=== PATIENT | male | born 1955 | race African-American/Black ===

== ENCOUNTER 2024-09-06 09:44 | Outpatient (OUT) | payer MEDICARE, SELFPAY ==
--- NOTE | 2024-09-06 09:58 | US_ITS ---
[address] [address] Patient Name: GENEVIEVE JOHNSON MRN: [id number] date: 1955 Sex: M Assigned Patient Location: US Current Patient Location: US Accession/Order Number: [id number] Exam Date: 09/06/2024 09:59 Report Date: 09/06/2024 11:17 At the request of: GIORGIO WHITE Procedure: US abdominal aortic aneurysm EXAMINATION: US abdominal aortic aneurysm HISTORY: Screening, Ex Cigarette Smoker COMPARISON: No relevant comparison available. TECHNIQUE: Ultrasound examination of the retroperitoneal area was performed, with a focused evaluation of the abdominal aorta. FINDINGS: Proximal aorta: 2.1 x 3.0 cm Mid aorta: 1.9 x 2.0 cm Distal aorta: 1.9 x 1.9 cm Right common iliac artery: 1.2 x 1.0 cm Left common iliac artery: 1.1 x 1.2 cm US/US abdominal aortic aneurysm IMPRESSION: No abdominal aortic aneurysm observed. Electronically authenticated by: DENITA SANTANA Date: 09/06/2024 11:17
== END 2024-09-06 09:45 | disposition home or self-care (01) ==
LOC: US 09:44
PROVIDERS: PCP Family Medicine; Visit Provider Family Medicine
DX: Z87.891 Personal history of nicotine dependence (principal)
CPT/HCPCS: 76775

== ENCOUNTER 2024-10-01 13:20 | Outpatient (OUT) | payer MEDICARE, SELFPAY ==
--- OUTSIDE RECORDS SUMMARY | 2024-10-01 13:27 | XMS_ITS | CCD ---
Author Organization [facility] Care Team Providers Care Automotive Brake Technician Name Role Phone Fantasma Lemon DO Primary Care Provider [phone] FANTASMA LEMON Attending Unavailable FANTASMA LEMON Referring Unavailable FANTASMA LEMON Primary Care Unavailable Allergies Allergy Classification Reported Allergen(s) Allergy Type Date of Onset Reaction(s) Facility (9 sources) Codeine; Translations: [CODEINE] Drug Allergy 07-27-2022 Itching [facility] Medications Current Medications Medication Drug Class(es) Dates Sig (Normalized) Sig (Original) amLODIPine 10 mg oral tablet (10 sources) Dihydropyridine Calcium Channel Miguel Start: 08-27-2024 take 1 tablet by mouth in the morning amLODIPine (NORVASC) 10 mg tablet Indications: Essential (primary) hypertension TAKE 1 TABLET (10 MG TOTAL) BY MOUTH IN THE MORNING 90 tablet 08/27/2024 Active Start: 05-27-2024 End: 08-27-2024 take 1 tablet by mouth in the morning amLODIPine (NORVASC) 10 mg tablet Indications: Essential (primary) hypertension TAKE 1 TABLET (10 MG TOTAL) BY MOUTH IN THE MORNING 90 tablet 05/27/2024 08/27/2024 Discontinued Start: 04-22-2023 End: 11-27-2023 take 1 tablet by mouth in the morning amLODIPine (NORVASC) 10 mg tablet Indications: Essential (primary) hypertension Take 1 tablet (10 mg total) by mouth in the morning. 30 tablet 5 11/27/2023 Active aspirin 81 mg delayed release oral tablet (8 sources) Platelet Aggregation Inhibitor, Nonsteroidal Anti-inflammatory Drug aspirin 81 mg asp irin Active atorvastatin 10 mg oral tablet (13 sources) HMG-CoA Reductase Inhibitor Start: take 1 tablet by mouth once daily atorvastatin (LIPITOR) 10 mg tablet Indications: Pure hyperglyceridemia TAKE 1 TABLET BY MOUTH EVERY DAY 30 tablet 09/16/2024 Active Start: 05-29-2024 End: 09-16-2024 take 1 tablet by mouth once daily atorvastatin (LIPITOR) 10 mg tablet Indications: Pure hyperglyceridemia TAKE 1 TABLET BY MOUTH EVERY DAY 30 tablet 08/20/2024 09/16/2024 Discontinued Start: 09-28-2023 End: 11-30-2023 take 1 tablet by mouth once daily atorvastatin (LIPITOR) 10 mg tablet Indications: Pure hyperglyceridemia take 1 tablet by mouth every day 90 tablet 0 11/30/2023 Active levothyroxine sodium 0.05 mg oral tablet (9 sources) l-Thyroxine Start: 08-27-2024 take 1 tablet by mouth in the morning levothyroxine (SYNTHROID, LEVOTHROID) 50 MCG tablet Indications: Hypothyroidism TAKE 1 TABLET (50 MCG TOTAL) BY MOUTH IN THE MORNING 90 tablet 08/27/2024 Active Start: 05-27-2024 End: 08-27-2024 take 1 tablet by mouth in the morning levothyroxine (SYNTHROID, LEVOTHROID) 50 MCG tablet Indications: Hypothyroidism TAKE 1 TABLET (50 MCG TOTAL) BY MOUTH IN THE MORNING 90 tablet 05/27/2024 08/27/2024 Discontinued Start: 07-05-2023 take 1 tablet by john th in the morning levothyroxine (SYNTHROID, LEVOTHROID) 50 MCG tablet Indications: Hypothyroidism Take 1 tablet (50 mcg total) by mouth in the morning. 90 tablet 1 07/05/2023 Active sildenafil 100 mg oral tablet (4 sources) Phosphodiesterase 5 Inhibitor Start: 08-08-2024 take 1 tablet by mouth once daily as needed sildenafiL (VIAGRA) 100 mg tablet Take 1 tablet (100 mg total) by mouth daily as needed for erectile dysfunction. 10 tablet 5 08/08/2024 Active Completed/Discontinued Medications Medication Drug Class(es) Dates Sig (Normalized) Sig (Original) cimetidine 300 mg oral tablet (5 sources) Histamine-2 Receptor Antagonist Start: 07-05-2023 End: 08-08-2024 take 1 tablet by mouth three times daily cimetidine (TAGAMET) 300 mg tablet Indications: Urticaria TAKE 1 TABLET BY MOUTH THREE TIMES A DAY 270 tablet 1 07/05/2023 08/08/2024 Discontinued (Therapy completed) Problems Active Problems Problem Classification Problem Date Documented Da te Episodic/Chronic Chronic kidney disease (9 sources) Chronic kidney disease stage 3; Translations: [Stage 3 chronic kidney disease] Onset: 07-17-2018 Resolved: 08-08-2024 07-27-2022 Chronic Disorders of lipid metabolism (16 sources) Hypertriglyceridemi a; Translations: [Pure hyperglyceridemia] Onset: 05-19-2016 07-27-2022 Chronic Essential hypertension (11 sources) Essential hypertension; Translations: [Essential (primary) hypertension] Onset: 08-08-2024 11-27-2023 Chronic Hypertension with complications and secondary hypertension (10 sources) Hypertensive renal disease; Translations: [Hypertensive chronic kidney disease with stage 1 through stage 4 chronic kidney disease, or unspecified chronic kidney disease] Onset: 07-27-2022 Resolved: 08-08-2024 07-27-2022 Chronic Immunizations and screening for infectious disease (2 sources) Needs influenza immunization; Translations: [Encounter for immunization] Onset: 08-08-2024 08-08-2024 Episodic Nutritional deficiencies (10 sources) Vitamin D deficiency; Translations: [Vitamin D deficiency, unspecified] Onset: 08-14-2019 07-27-2022 Chronic Other male genital disorders (9 sources) Other male erectile dysfunction; Translations: [Impotence of organic origin] Onset: 05-19-2016 07-27-2022 Chronic Other male genital disorders (1 source) Male erectile dysfunction, unspecified; Translations: [Male erectile dysfunction, unspecified] Onset: 08-08-2024 Chronic Other nervous system disorders (8 sources) Carpal tunnel syndrome; Translations: [Carpal tunnel syndrome, unspecified upper limb] Onset: 11-14-2016 07-27-2022 Chronic Screening and history of mental health and substance abuse codes (2 sources) Ex-cigarette smoker; Translations: [Personal history of nicotine dependence] Onset: 08-08-2024 08-08-2024 Episodic Thyroid disorders (19 sources) Acquired hypothyroidism; Translations: [Hypothyroidism, unspecified] Onset: 11-30-2016 06-21-2022 Chronic Past or Other Problems Problem Classification Problem Date Documented Da te Episodic/Chronic Mood disorders (8 sources) Mood disorders Onset: 06-26-2023 Resolved: 08-08-2024 06-26-2023 Other screening for suspected conditions (not mental disorders or infectious disease) (8 sources) Patient encounter status; Translations: [Encounter for screening for malignant neoplasm of prostate] Onset: 06-21-2022 06-21-2022 Episodic Vital Signs Date Time Vital Sign Value Performing Clinician Maya norton 08-08-2024 13:12-0500 Body mass index (BMI) [Ratio] 25.44 kg/m2 [employer] Work Phone: [employer] 08-08-2024 13:12-0500 Body temperature 98.6 [degF] [employer] Work Phone: [employer] 08-08-2024 13:12-0500 Body weight 94.8 kg [employer] Work Phone: [employer] 08-08-2024 13:12-0500 Diastolic blood pressure 60 mm[Hg] [employer] Work Phone: [employer] 08-08-2024 13:12-0500 Heart rate 93 /min [employer] Work Phone: [employer] 08-08-2024 13:12-0500 SaO2% (BldA) [Mass fraction] 98 % [employer] DO Work Phone: [employer] 08-08-2024 13:12-0500 Systolic blood pressure 142 mm[Hg] [employer] Work Phone: [facility] Encounters Encounter Date Encounter Type Care Provider Facility Start: 09-15-2024 End: 09-16-2024 Refill Fantasmasarah Rojasng DO Work Phone: [facility] Comment on above: Pure hyperglyceridem ia Start: 08-27-2024 End: 08-27-2024 Refill Fantasma Nataliya Rojasng DO Work Phone: [facility] Comment on above: Hypothyroidism; Essential (primary) hypertension Start: 08-20-2024 End: 08-20-2024 Refill Fantasma Lemon DO Work Phone: [facility] Comment on above: Pure hyperglyceridem ia Start: 08-08-2024 End: 08-08-2024 ambulatory FANTASMA LEMON [facility] Start: 08-08-2024 End: 08-08-2024 Office outpatient visit 25 minutes Fantasma Lemon DO Work Phone: [facility] Comment on above: Stage 2 chronic kidn ey disease due to benign hypertension (Primary Dx); Acquired hypothyroidism; Vitamin D deficiency; Hypertriglyceridemia; Need for immunization against influenza; Ex-cigarette smoker; Erectile dysfunction, unspecified erectile dysfunction type Start: 07-25-2024 End: 07-25-2024 Refill Fantasma Lemon DO [facility] Comment on above: Pure hyperglyceridem ia Start: 06-28-2024 End: 06-28-2024 Refill Fantasma Lemon DO Work Phone: [facility] Comment on above: Pure hyperglyceridem ia Start: 11-30-2023 Refill Fantasma cui DO [facility] Comment on above: Pure hyperglyceridem ia Start: 11-27-2023 Refill Mechelle Nena APRON CLEANER [facility] Comment on above: Essential (primary) hypertension Procedures Date Procedure Procedure Detail Performing Clinician Start: 08-08-2024 Adult depression screening assessment Fantasma Lemon DO Work Phone: Start: 06-26-2023 Adult depression screening assessment Mechelle Nena APRON CLEANER Plan of Treatment Date Care Activity Detail Author Start: 08-09-2029 DTaP,Tdap and Td Vaccines (2 - Td or Tdap) DTaP,Tdap and Td Vaccines (2 - Td or Tdap) [facility] Start: 08-08-2025 Adult BMI Screening Adult BMI Screening [facility] Start: 08-08-2025 Depression Screening Depression Screening [facility] Start: 08-08-2025 Fall Risk Screening Fall Risk Screening [facility] Start: 08-08-2025 Tobacco Screening Tobacco Screening [facility] Start: 09-18-2024 Screening for malignant neoplasm of colon Colon Cancer Screening 3 Year Cologuard [facility] Comment on above: Postponed from 2002 (Patient Refus ed) Start: 08-08-2024 End: 08-08-2025 US Abdominal Aorta for screening Ultrasound abdominal aorta for AAA screening Imaging Routine Ex-cigarette smoker Expected: 08/08/2024, Expires: 08/08/2025 [facility] Comment on above: Expected: 08/08/2024, Expires: Start: 08-08-2024 End: 08-08-2024 Patient encounter procedure 08/08/2024 1:00 PM EST Office Visit [facility] [address] [place] [address] Fantasma Lemon, DO [address], [place] [address] [facility] Start: 06-26-2024 Adult BMI Screening Adult BMI Screening [facility] Start: 06-26-2024 Depression Screening Depression Screening [facility] Start: 06-26-2024 Fall Risk Screening Fall Risk Screening [facility] Start: 06-26-2024 Tobacco Screening Tobacco Screening [facility] Start: 05-19-2024 COVID-19 Vaccine ( season) COVID-19 Vaccine () [facility] Start: 05-19-2024 COVID-19 Vaccine () COVID-19 Vaccine () [facility] Start: 05-19-2024 Influenza vaccination Influenza Vaccine [facility] Start: 05-19-2023 COVID-19 Vaccine () COVID-19 Vaccine () [facility] Start: 05-19-2023 Influenza vaccination Influenza Vaccine [facility] Start: 2022 Abdominal aortic aneurysm screening Abdominal Aortic Aneurysm (AAA) Screen [facility] Start: 12-11-2007 Administration of varicella zoster vaccine Zoster (Shingles) Vaccine (1 of 2) [facility] Start: 2002 Screening for malignant neoplasm of colon Colon Cancer Screening 3 Year Cologuard [facility] Start: 12-11-1975 Adult BMI Follow Up Plan Adult BMI Follow Up Plan [facility] Start: 1955 Medicare Annual Wellness Visit Medicare [facility] End: 08-08-2025 Comprehensive metabolic 2000 panel - Serum or Plasma Comprehensive metabolic panel Lab Routine Stage 2 chronic kidney disease due to benign hypertension 1 Occurrences starting 08/08/2024 until 08/08/2025 [facility] Comment on above: 1 Occurrences starting 08/08/2024 until 08/08/2025 End: 08-08-2025 Lipid panel Lipid panel Lab Routine Hypertriglyceridemia 1 Occurrences starting 08/08/2024 until 08/08/2025 [facility] Comment on above: 1 Occurrences starting 08/08/2024 until 08/08/2025 End: 08-08-2025 Thyroid profile includes TSH FT4 Thyroid profile includes TSH FT4 Lab Routine Acquired hypothyroidism 1 Occurrences starting 08/08/2024 until 08/08/2025 [employer] Work Phone: Comment on above: 1 Occurrences starting 08/08/2024 until 08/08/2025 Immunizations Immunization Date Immunization Notes Care Provider Salome devine 08-08-2024 Seasonal trivalent influenza vaccine, adjuvanted, preservative free Fantasma Lemon DO Work Phone: [facility] 08-08-2024 Immunization, In Clinic,; Translations: [Drug or medicament (substance)] Fantasma Lemon DO [facility] Phone[facility] 08-09-2019 tetanus toxoid, redu hebert diphtheria toxoid, and acellular pertussis vaccine, adsorbed Mechelle Nena APRON CLEANER [facility] Work Phone: Payers Date Payer Category Payer Medicare HMO [employer] [id number] 2024 Medicare [id number] 2022 Unknown [employer] OUT OF STATE PPO/TRUST [id number] 2022-Present [phone] [id number] [place] [address] [id number] 1955 Unknown [id number] Social History Date Type Detail Facility Start: 03-10-2023 [facility] History of tobacco use [facility] History of tobacco use Cigarette Smoker P [facility] Start: 07-27-2022 End: 03-10-2023 Cigarettes smoked current (pack per day) - Reported 0.4 [facility] Start: 03-10-2023 Tobacco use and exposure Smoke less tobacco non-user [facility] Start: 06-26-2023 End: 08-08-2024 Alcohol intake Current drinker of alcohol (finding) [facility] Start: 07-27-2022 End: 08-08-2024 Social connection and isolation panel [facility] Do you belong to any clubs or organizations such as sikhism groups, unions, fraternal or athletic groups, or school groups? Yes [facility] Are you now , , , , never or living with a partner? [facility] How often to you hav e a drink containing alcohol? 2-3 time sa week [facility] How many standard dr inks containing alcohol do you have on a typical day? 1 or 2 [facility] How often do you hav e 6 or more drinks on 1 occasion? Never [facility] How hard is it for y ou to pay for the very basics like food, housing, medical care, and heating Not hard at all [facility] Do you feel stress - tense, restless, nervous, or anxious, or unable to sleep at night because your mind is troubled all the time - these days [OSQ] Not at all [facility] Start: 1955 Sex Assigned At Not on file P [facility] Start: 04-23-2015 Sex Male (finding) [facility] Has the [employer], [facility], or water [employer] threatened to shut off services in your home in past 12Mo No [facility] Clinical Notes 08-08-2024 to 09-15-2024 Telephone Encounter - Fantasma Lemon DO - 09/15/2024 7:47 AM ESTTelephone Encounter - Fantasma Lemon DO - 09/15/2024 7:47 AM Sayra Lemon DO - 08/08/2024 1:00 PM EST Note Date & Type Note Facility 09-15-2024 Miscellaneous Notes Formattin g of this note might be different from the original. He refused to get his labs done here at last visit. He needs to get them done somewhere. Where would he like them done at? It probably will not be free because he is Medicare but he needs them done regardless or he will not be able to continue on the medications documented in this encounter [facility] 09-15-2024 Telephone encount er Note He refused to get his labs done here at last visit. He needs to get them done somewhere. Where would he like them done at? It probably will not be free because he is Medicare but he needs them done regardless or he will not be able to continue on the medications [employer] 08-27-2024 Miscellaneous Notes Formattin g of this note might be different from the original. Prescription sent in but he did not get his labs done yet. He was seen in July and should have them done at the visit. I can not tell if we sent them to the lab or if they were clinic collect. If they were clinic collect he needs to go to the lab to get them done and I will probably have to put in a new order. documented [facility] this encounter [facility]-27-2024 Telephone encount er Note Prescription sent in but he did not get his labs done yet. He was seen in July and should have them done at the visit. I can not tell if we sent them to the lab or if they were clinic collect. If they were clinic collect he needs to go to the lab to get them done and I will probably have to put in a new order. [employer] 08-20-2024 Miscellaneous Notes Formattin g of this note might be different from the original. Rx sent in. He needs to get his labs done that were ordered documented [facility] this encounter [facility] 08-20-2024 Telephone encount er Note Rx sent in. He needs to get his labs done that were ordered [employer] 08-08-2024 History of Presen t illness Narrative Subjective Patient ID: Donny Tabares is a 68 y.o. male. Duct presents today for recheck of multiple problems. He is taking his medications. He is drinking more water to help with his kidney function. He does have an issue with erectile dysfunction. He has trouble getting and maintaining erections. He would like medication for it. Has been a gradual onset. He had a rash on his left upper extremity recently. There were red itchy bumps a by his shoulder upper arm and forearm. His got new soap and was using starts in his clothes so they stopped that. It seems to have improved. He still has a few bumps on his left forearm The following portions of the patient's history were reviewed and updated as appropriate: allergies, current medications, past family history, past medical history, past social history, past surgical history, problem list, and medication reconciliation was completed including current medication and post discharge medication. Review of Systems Constitutional: Negative. HENT: Negative. Eyes: Negative. Respiratory: Negative. Cardiovascular: Negative. Gastrointestinal: Negative. Endocrine: Negative. Genitourinary: Negative. Musculoskeletal: Negative. Skin: Negative. Allergic/Immunologic: Negative. Neurological: Negative. Hematological: Negative. Psychiatric/Behavioral: Negative. Objective Physical Exam Constitutional: General: He is not in acute distress. Appearance: Normal appearance. He is not ill-appearing. HENT: Head: Normocephalic. Eyes: General: No scleral icterus. Extraocular Movements: Extraocular movements intact. Conjunctiva/sclera: Conjunctivae normal. Neck: Vascular: No carotid bruit. Cardiovascular: Rate and Rhythm: Normal rate and regular rhythm. Pulses: Normal pulses. Heart sounds: Normal heart sounds. No murmur heard. No friction rub. No gallop. Pulmonary: Effort: Pulmonary effort is normal. No respiratory distress. Breath sounds: Normal breath sounds. No wheezing, rhonchi or rales. Abdominal: General: Bowel sounds are normal. There is no distension. Palpations: Abdomen is soft. There is no mass. Tenderness: There is no abdominal tenderness. Hernia: No hernia is present. Genitourinary: Comments: Declined Musculoskeletal: Cervical back: Neck supple. No tenderness. Right lower leg: No edema. Left lower leg: No edema. Lymphadenopathy: Cervical: No cervical adenopathy. Skin: Findings: Rash present. Comments: Several papules on the extensor surface of his mid left forearm Neurological: General: No focal deficit present. Mental Status: He is alert and oriented to person, place, and time. Cranial Nerves: Cranial nerves 2-12 are intact. Gait: Gait is intact. Psychiatric: Attention and Perception: Attention and perception normal. Mood and Affect: Mood and affect normal. Speech: Speech normal. Behavior: Behavior normal. Behavior is cooperative. Thought Content: Thought content normal. Cognition and Memory: Cognition normal. Judgment: Judgment normal. Assessment/Plan Donny was seen today for hypertension and hyperlipidemia. Diagnoses and all orders for this visit: Stage 2 chronic kidney disease due to benign hypertension - Comprehensive metabolic panel; Future Check CMP. Blood pressure is borderline high. We will continue current regimen for now. Monitor blood pressure at home. Acquired hypothyroidism - Thyroid profile includes TSH FT4; Future Check TSH and T4. Vitamin D deficiency He declines vitamin-D recheck. Hypertriglyceridemia - Lipid panel; Future Check lipid panel Need for immunization against influenza - Influenza, Trivalent, Adjuvanted Agrees to the flu vaccine. Does get sick afterwards I encouraged him to use Tylenol Ex-cigarette smoker - Ultrasound abdominal aorta for AAA screening; Future He is an ex cigarette smoker. He smoked about a 3rd of a pack a day for 40 years. He does not quite meet the criteria for a low-dose CT scan. He does agree to a AAA screen though. Erectile dysfunction, unspecified erectile dysfunction type Will try Viagra. He had does not take any nitroglycerin or have known heart problems. He refused prostate cancer and colon cancer screenings. Recommended he get his shingles vaccine at the pharmacy Dermatitis Seems to be resolving. Can try [id number] hydrocortisone cream. Other orders - sildenafiL (VIAGRA) 100 mg tablet; Take 1 tablet (100 mg total) by mouth daily as needed for erectile dysfunction. documented in this encounter [facility] [employer] [facility] Evaluation note Diagnosis Essential (primary) hypertension Unspecified essential hypertension documented in this encounter [facility] Diagnosis Pure hyperglyceridemia documented in this encounter [facility] Diagnosis Pure hyperglyceridemia documented in this encounter [facility]* Diagnosis Stage 2 chronic kidney disease due to benign hypertension- Primary Acquired hypothyroidism Unspecified hypothyroidism Vitamin D deficiency Hypertriglyceridemia Pure hyperglyceridemia Need for immunization against influenza Need for prophylactic vaccination and inoculation against influenza Ex-cigarette smoker Personal history of tobacco use, presenting hazards to health Erectile dysfunction, unspecified erectile dysfunction type documented in this encounter [facility]* Diagnosis Pure hyperglyceridemia [facility] Diagnosis Hypothyroidism Unspecified hypothyroidism Essential (primary) hypertension Unspecified essential hypertension documented [facility] this encounter [facility] filedocumented in this encounter [facility] filed[facility] this [facility] on filedocumented in this encounter [facility] on filedocumented in this encounter [facility] Summary Purpose Family History No Family History Records Found Advance Directives No Advanced Directives Records Found Additional Source Comments Reason for Visit (unrecogniz ed section and content) Reason Onset Date Comments Med Refill 11/27/2023 Reason Comments Med Refill Reason Comments Hypertension Hyperlipidemia Care Teams (unrecognized sec tion and content) [employer]ician Relationship Specialty Start Date End Date Fantasma Lemon DO [address] [place] [address] PCP - General Family Medicine 07/20/17 [employer]otive Bra[employer] Technician Relationship Specialty Start Date End Date Fantasma Lemon DO [address] [place] [address] PCP - General Family Medicine 07/20/17 Automotive Brake Technician Relationship Specialty Start Date End Date Fantasma Lemon DO [address] [place] [address] PCP - General Family Medicine 07/20/17 Automotive Brake Technician Relationship Specialty Start Date End Date Fantasma Lemon DO [address] [place] [address] PCP - General Family Medicine 07/20/17 (unrecognized sect ion and content) No Status Records Found INFORMATION SOURCE (unrecogn ized section and content) DATE CREATED AUTHOR 08/11/2024 [facility] FOR RECORDS PERTAINING TO PATIENTS WHO ARE OR HAVE BEEN ENROLLED IN A CHEMICAL DEPENDENCY/SUBSTANCEABUSE PROGRAM, SOME INFORMATION MAY BE OMITTED. This clinical summary was aggregated from multiple sources. Caution should be exercised in using it in the provision of clinical care. This summary normalizes information from multiple sources, and as a consequence, information in this document may materially change the coding, format and clinical context of patient data. In addition, data may be omitted in some cases. CLINICAL DECISIONS SHOULD BE BASED ON THE PRIMARY CLINICAL RECORDS. [facility] provides no warranty or guarantee of the accuracy or completeness of information in this document.
[2024-10-01 14:11] LABS: Alanine Aminotransferase 36 U/L (16-63); Albumin Level 3.9 g/dL (3.4-5.0); Alkaline Phosphatase 54 U/L (46-116); Anion Gap 7.8; Aspartate Amino Transferase 23 U/L (15-37); Bilirubin Total 0.3 mg/dL (0.2-1.0); Calcium 9.2 mg/dL (8.5-10.1); Carbon Dioxide 30.2 mmol/L (21.0-32.0); Chloride 106 mmol/L (98-107); Cholesterol 129 mg/dL (<=200); Estimated GFR (African America 53 (>=60 mL/min/1.73m^2); Estimated GFR (Non-African Ame 43 (>=60 mL/min/1.73m^2); Globulin 3.8 g/dL; Glucose 83 mg/dL (74-106); HDL Cholesterol 43 mg/dL (40-60); Sodium 140 mmol/L (136-145); Thyroid Stimulating Hormone 2.408 uIU/mL (0.358-3.740); Total Protein 7.7 g/dL (6.4-8.2); Triglycerides 145 mg/dL (<=150)
[2024-10-01 14:27] LABS: Free T4 1.01 ng/dL (0.76-1.46)
== END 2024-10-01 13:21 | disposition home or self-care (01) ==
PROVIDERS: PCP Family Medicine; Visit Provider Family Medicine
DX: E78.1 Pure hyperglyceridemia (principal); I12.9 Hypertensive chronic kidney disease with stage 1 through stage 4 chronic kidney disease, or unspecified chronic kidney disease; N18.2 Chronic kidney disease, stage 2 (mild); E03.9 Hypothyroidism, unspecified
CPT/HCPCS: 36415; 80053; 80061; 84439; 84443